=== PATIENT | female | born 1985 | race Caucasian/White ===

== ENCOUNTER 2024-01-21 04:15 | Emergency (ER) | payer SELFPAY ==
[~2024-01-21] VITALS: Ht 157.5 cm; Wt 90.7 kg
[2024-01-21 04:18] VITALS: PULSE 105; RESP 18; TEMP 99; O2SAT 96
[2024-01-21] MEDS ORDERED: IBUPROFEN200 MG PO (04:36)
[2024-01-21] MEDS ORDERED: TYLENOL325 MG PO (04:36)
== END 2024-01-21 06:00 | disposition home or self-care (01) ==
LOC: FSED 04:19
DX: S92.355A Nondisplaced fracture of fifth metatarsal bone, left foot, initial encounter for closed fracture (principal); G89.11 Acute pain due to trauma; S93.402A Sprain of unspecified ligament of left ankle, initial encounter; X50.1XXA Overexertion from prolonged static or awkward postures, initial encounter; Z88.2 Allergy status to sulfonamides
CPT/HCPCS: 99284

== ENCOUNTER 2024-08-12 20:10 | Emergency (ER) | payer SELFPAY ==
[~2024-08-12] VITALS: Ht 157.5 cm; Wt 102.1 kg
[~2024-08-12 20:10] MED LIST: IBUPROFEN200 MG PO; TYLENOL325 MG PO
[2024-08-12 21:01] LABS: AMPHETAMINES SCREEN,URINE NEGATIVE (NEGATIVE); BENZODIAZEPINES SCREEN,URINE NEGATIVE (NEGATIVE); CANNABINOIDS SCREEN,URINE NEGATIVE (NEGATIVE); COCAINE SCREEN,URINE NEGATIVE (NEGATIVE); METHADONE SCREEN, URINE NEGATIVE (NEGATIVE); OPIATES SCREEN,URINE NEGATIVE (NEGATIVE); PHENCYCLIDINE SCREEN,URINE NEGATIVE (NEGATIVE); PREGNANCY TEST, URINE NEGATIVE (NEGATIVE)
[2024-08-12 21:03] LABS: BASOPHILS % 0.2 % (0.0-1.0); EOSINOPHILS # (AUTO) 0.1 (0.0-0.4); EOSINOPHILS % 0.8 % (0.0-6.0); HEMATOCRIT 37.8 % (34.2-44.1); HEMOGLOBIN 12.3 g/dL (12.0-16.0); LYMPHOCYTES # (AUTO) 2.3 (1.0-3.2); LYMPHOCYTES % 26.3 % (18.0-39.1); MEAN CORPUSCULAR HEMOGLOBIN 29.2 pg (28-32); MEAN CORPUSCULAR HGB CONC 32.5 g/dL (31-35); MEAN CORPUSCULAR VOLUME 89.8 fL (81-99); MONOCYTES # (AUTO) 0.7 (0.2-0.8); MONOCYTES % 7.9 % (4.4-11.3); NEUTROPHILS # (AUTO) 5.5 (2.1-6.9); NEUTROPHILS % 64.3 % (38.7-80.0); PLATELET COUNT 277 x10e3/uL (140-360); RED BLOOD COUNT 4.21 x10e6/uL (3.6-5.1); RED CELL DISTRIBUTION WIDTH 14.4 % (11.7-14.4); WHITE BLOOD COUNT 8.56 x10e3/uL (4.8-10.8)
[2024-08-12 21:20] LABS: ALBUMIN 3.5 g/dL (3.5-5.0); ANION GAP 16.3 mmol/L (8-16); BILIRUBIN,TOTAL 0.2 mg/dL (0.2-1.2); CALCIUM 8.9 mg/dL (8.4-10.2); CREATININE, SERUM 0.81 mg/dL (0.57-1.11); POTASSIUM 4.3 mmol/L (3.5-5.1); TOTAL PROTEIN 7.1 g/dL (6.5-8.1)
[2024-08-12] MEDS: KETOROLAC TROMETHAMINE 30 MG/ML VIAL IV STA (21:22)
[2024-08-12 21:27] LABS: TROPONIN I 0.054 ng/mL (0-0.300)
[2024-08-12] MEDS ORDERED: IOPAMIDOL 370 MG/ML 100 ML INFUS..BTL INJ ONE (21:44)
[2024-08-12 22:53] VITALS: PULSE 68; RESP 14; TEMP 98.6; O2SAT 100
== END 2024-08-12 23:00 | disposition home or self-care (01) ==
LOC: ER 20:18
DX: R06.02 Shortness of breath (principal); R07.89 Other chest pain; R79.1 Abnormal coagulation profile; F17.210 Nicotine dependence, cigarettes, uncomplicated
CPT/HCPCS: 36415; 71045; 71260; 80053; 80307; 81025; 82550; 83690; 83880; 84484; 85025; 85379; 99284; J1885; Q9967; 93005

== ENCOUNTER 2024-09-25 22:28 | Emergency (ER) | payer SELFPAY ==
[~2024-09-25] VITALS: Ht 157.5 cm; Wt 104.3 kg
[2024-09-26 00:26] LABS: AMPHETAMINES SCREEN,URINE NEGATIVE (NEGATIVE); BENZODIAZEPINES SCREEN,URINE NEGATIVE (NEGATIVE); CANNABINOIDS SCREEN,URINE NEGATIVE (NEGATIVE); COCAINE SCREEN,URINE NEGATIVE (NEGATIVE); METHADONE SCREEN, URINE NEGATIVE (NEGATIVE); OPIATES SCREEN,URINE NEGATIVE (NEGATIVE); PHENCYCLIDINE SCREEN,URINE NEGATIVE (NEGATIVE); PREGNANCY TEST, URINE NEGATIVE (NEGATIVE)
[2024-09-26 00:32] LABS: BASOPHILS % 0.2 % (0.0-1.0); EOSINOPHILS # (AUTO) 0.1 (0.0-0.4); EOSINOPHILS % 0.6 % (0.0-6.0); HEMATOCRIT 36.1 % (34.2-44.1); HEMOGLOBIN 12.4 g/dL (12.0-16.0); LYMPHOCYTES # (AUTO) 2.8 (1.0-3.2); LYMPHOCYTES % 25.2 % (18.0-39.1); MEAN CORPUSCULAR HEMOGLOBIN 28.7 pg (28-32); MEAN CORPUSCULAR HGB CONC 34.3 g/dL (31-35); MEAN CORPUSCULAR VOLUME 83.6 fL (81-99); MONOCYTES # (AUTO) 0.7 (0.2-0.8); NEUTROPHILS # (AUTO) 7.3 (2.1-6.9); NEUTROPHILS % 67.2 % (38.7-80.0); PLATELET COUNT 270 x10e3/uL (140-360); RED BLOOD COUNT 4.32 x10e6/uL (3.6-5.1); RED CELL DISTRIBUTION WIDTH 14.4 % (11.7-14.4); WHITE BLOOD COUNT 10.91 x10e3/uL (4.8-10.8)
[2024-09-26 01:23] LABS: ACETAMINOPHEN < 3.0 ug/mL (10-30); ETHANOL < 10.0 mg/dL (0.0-10.0); SALICYLATE < 5.0 mg/dL (0-30)
[2024-09-26 01:40] LABS: ALBUMIN 3.7 g/dL (3.5-5.0); ALBUMIN/GLOBULIN RATIO 1.1 (0.8-2.0); BILIRUBIN,TOTAL 0.5 mg/dL (0.2-1.2); CALCIUM 9.2 mg/dL (8.4-10.2); CREATININE, SERUM 0.72 mg/dL (0.57-1.11); TOTAL PROTEIN 7.2 g/dL (6.5-8.1)
[2024-09-27 06:30] VITALS: TEMP 98
[2024-09-27 08:21] VITALS: PULSE 88; RESP 15
[2024-09-27 13:35] VITALS: BP 129/84; PULSE 74; RESP 15; TEMP 98.6; O2SAT 98
== END 2024-09-27 10:15 | disposition home or self-care (01) ==
LOC: ER 22:33
DX: R45.850 Homicidal ideations (principal); R45.851 Suicidal ideations; M79.641 Pain in right hand; W22.09XA Striking against other stationary object, initial encounter; F32.A Depression, unspecified; F41.9 Anxiety disorder, unspecified; Z72.0 Tobacco use
CPT/HCPCS: 36415; 80053; 80307; 80320; 80329; 81025; 85025; 99285